=== PATIENT | female | born 1940 | race Caucasian/White ===

== ENCOUNTER → 2018-01-20 | Outpatient (CLI) | payer MEDICARE ==
[~2018-01-20] MED LIST: AMLO10TA2 PO; ASPI325T80 PO; CALC1CAP8 PO; GABA600T2 PO; HYDR12.58 PO; HYDR25TA11 PO; LOSA100T2 PO; MULT-224 PO; NEBI10TA3 PO; OXYC1TAB7 PO; PRAV40TA2 PO; PRED1TAB PO; ZOLP10TA5 PO
== END | disposition home or self-care (01) ==
LOC: CFH 08:51
DX: M85.88 Other specified disorders of bone density and structure, other site (principal); M81.0 Age-related osteoporosis without current pathological fracture; R60.0 Localized edema
CPT/HCPCS: 77080

== ENCOUNTER 2018-04-12 09:40 | Inpatient (IN) | payer MEDICARE ==
[~2018-04-12] VITALS: Ht 162.6 cm; Wt 79.3 kg
[2018-04-12] MEDS ORDERED: SODIUM CHLORIDE 0.9% 1,000ML IVBOLUS ONE (10:30)
[2018-04-12] MEDS ORDERED: SODIUM CHLORIDE FLUSH 10ML SYR IVF ONE (10:30)
[2018-04-12 10:59] LABS: BASOPHILS # (AUTO) 0.01 x10^3/uL (0-0.1); BASOPHILS % (AUTO) 0 % (0-1); EOSINOPHILS # (AUTO) 0.54 x10^3/uL (0-0.4); EOSINOPHILS % (AUTO) 4 % (1-7); LYMPHOCYTES # (AUTO) 0.54 x10^3/uL (1-3.4); LYMPHOCYTES % (AUTO) 4 % (22-44); MD NO; MEAN CORPUSCULAR HEMOGLOBIN 30.6 pg (27.0-34.8); MEAN CORPUSCULAR HGB CONC 33.6 g/dL (32.4-35.8); MEAN CORPUSCULAR VOLUME 91.2 fL (80-100); MEAN PLATELET VOLUME 8.7 fL (7.4-10.4); MONOCYTES # (AUTO) 0.81 x10^3/uL (0.2-0.8); MONOCYTES % (AUTO) 5 % (2-9); NEUTROPHILS % (AUTO) 88 % (42-75); PLATELET COUNT 223 x10^3/uL (130-400); RED CELL DISTRIBUTION WIDTH 13.6 % (9.6-15.2)
[2018-04-12 11:10] LABS: ALBUMIN 2.9 g/dL (3.4-5.0); ANION GAP 13 mmol/L (5-15); CALCIUM 9.1 mg/dL (8.5-10.1); CHLORIDE 104 mmol/L (98-107); CREATININE 3.24 mg/dL (0.55-1.02)
[2018-04-12] MEDS ORDERED: CEFTRIAXONE PMX 1GM/50ML 50 ML ONE (11:14)
[2018-04-12] MEDS ORDERED: CEFTRIAXONE 1,000 MG in SODIUM CHLORIDE 0.9% 50 ML IVPB ONE (11:30)
[2018-04-12 12:04] LABS: MICROSCOPIC INDICATED
[2018-04-12 12:05] LABS: CULTURE INDICATED? YES
[2018-04-12] MEDS ORDERED: SODIUM CHLORIDE 0.9% 1,000 ML IV ONE (13:10)
[2018-04-12] MEDS ORDERED: SODIUM CHLORIDE FLUSH 10ML SYR IVF PRN (13:30)
[2018-04-12] MEDS ORDERED: ENOXAPARIN 40 MG/0.4 ML SQ SCH (14:30)
[2018-04-12] MEDS ORDERED: OXYcodone/APAP 5/325MG TABLET PO PRN (14:30)
[2018-04-12 15:02] VITALS: BP 108/72
[2018-04-12] MEDS: SODIUM CHLORIDE 0.9% 1,000 ML IV SCH ×2 (18:00→23:54)
[2018-04-12 18:33] VITALS: BP 134/68
[2018-04-12] MEDS: MAG HOMEMEDPO SCH (20:30)
[2018-04-12] MEDS: CALCIUM CARBONATE HOMEMEDPO SCH (20:30)
[2018-04-12] MEDS: ASPIRIN HOMEMEDPO SCH (20:30)
[2018-04-12] MEDS: PRAVASTATIN 40 MG TABLET PO SCH (20:31)
[2018-04-12] MEDS: ZOLPIDEM 10MG TABLET PO SCH (21:58)
[2018-04-12] MEDS: CEFTRIAXONE 2 GM in SODIUM CHLORIDE 0.9% 50 ML IV SCH (23:53)
[2018-04-13 00:52] VITALS: BP 98/62
[2018-04-13 04:39] LABS: MD YES; MEAN CORPUSCULAR HEMOGLOBIN 30.8 pg (27.0-34.8); MEAN CORPUSCULAR HGB CONC 33.6 g/dL (32.4-35.8); MEAN CORPUSCULAR VOLUME 91.6 fL (80-100); PLATELET COUNT 197 x10^3/uL (130-400); RED BLOOD COUNT 4.09 x10^6/uL (3.82-5.3); RED CELL DISTRIBUTION WIDTH 13.9 % (9.6-15.2)
[2018-04-13 04:53] LABS: CHLORIDE 110 mmol/L (98-107)
[2018-04-13 04:58] LABS: ANION GAP 11 mmol/L (5-15); CALCIUM 7.8 mg/dL (8.5-10.1); CREATININE 2.25 mg/dL (0.55-1.02)
[2018-04-13 05:02] LABS: EOS#(MANUAL) 0.27 x10^3/uL (0.0-0.4); EOS% (MANUAL) 3 % (1-7); LYMPH#(MANUAL) 1.17 x10^3/uL (1-3.4); LYMPHS% (MANUAL) 13 % (22-44); MONOS#(MANUAL) 0.99 x10^3/uL (0.3-2.7); MONOS% (MANUAL) 11 % (2-9); SEG#(MANUAL) 6.57 x10^3/uL (1.8-6.8); SEGS% (MANUAL) 73 % (42-75)
[2018-04-13 05:03] LABS: <PLATELET ESTIMATE> ADEQUATE; <PLT MORPHOLOGY> NORMAL PLT MORPH; <RBC MORPHOLOGY> NORMAL
[2018-04-13 07:00] VITALS: BP 106/66
[2018-04-13 07:46] LABS: CREATININE,URINE RANDOM 55.2 mg/dL
[2018-04-13] MEDS: ASPIRIN HOMEMEDPO SCH ×2 (08:12→21:00)
[2018-04-13] MEDS: MAG HOMEMEDPO SCH ×2 (08:12→21:00)
[2018-04-13] MEDS: CALCIUM CARBONATE HOMEMEDPO SCH ×2 (08:12→21:00)
[2018-04-13] MEDS: SODIUM CHLORIDE 0.9% 1,000 ML IV SCH ×3 (08:13→23:40)
[2018-04-13] MEDS: GABAPENTIN 300 MG CAPSULE PO SCH (08:13)
[2018-04-13] MEDS: CALCIUM/VITAMIN D3 250-125 TABLET PO SCH (08:14)
[2018-04-13] MEDS ORDERED: AMLODIPINE 5 MG TABLET PO SCH (09:00)
[2018-04-13 16:21] LABS: ALBUMIN 2.3 g/dL (3.4-5.0); ANION GAP 10 mmol/L (5-15); CALCIUM 8.2 mg/dL (8.5-10.1); CHLORIDE 112 mmol/L (98-107); CREATININE 1.97 mg/dL (0.55-1.02)
[2018-04-13 16:38] VITALS: BP 107/65
[2018-04-13 16:50] VITALS: BP 95/58
[2018-04-13] MEDS: POTASSIUM CHLORIDE 20 MEQ TAB.ER.PRT PO SCH (17:40)
[2018-04-13 18:35] VITALS: BP 118/71
[2018-04-13] MEDS: ENOXAPARIN 30 MG/0.3 ML SQ SCH (20:00)
[2018-04-13] MEDS: PRAVASTATIN 40 MG TABLET PO SCH (21:30)
[2018-04-13] MEDS: ZOLPIDEM 10MG TABLET PO SCH (21:30)
[2018-04-13] MEDS: AMLODIPINE 5 MG TABLET PO SCH (21:30)
[2018-04-13] MEDS: CEFTRIAXONE 2 GM in SODIUM CHLORIDE 0.9% 50 ML IV SCH (23:40)
[2018-04-14 01:55] VITALS: BP 102/62
[2018-04-14 04:54] LABS: BASOPHILS # (AUTO) 0.01 x10^3/uL (0-0.1); BASOPHILS % (AUTO) 0 % (0-1); EOSINOPHILS # (AUTO) 0.62 x10^3/uL (0-0.4); EOSINOPHILS % (AUTO) 8 % (1-7); LYMPHOCYTES % (AUTO) 17 % (22-44); MD NO; MEAN CORPUSCULAR HEMOGLOBIN 30.2 pg (27.0-34.8); MEAN CORPUSCULAR HGB CONC 32.8 g/dL (32.4-35.8); MEAN CORPUSCULAR VOLUME 92.2 fL (80-100); MEAN PLATELET VOLUME 8.5 fL (7.4-10.4); MONOCYTES # (AUTO) 0.67 x10^3/uL (0.2-0.8); MONOCYTES % (AUTO) 8 % (2-9); NEUTROPHILS # (AUTO) 5.38 x10^3/uL (1.8-6.8); NEUTROPHILS % (AUTO) 67 % (42-75); PLATELET COUNT 216 x10^3/uL (130-400); RED BLOOD COUNT 4.03 x10^6/uL (3.82-5.3); RED CELL DISTRIBUTION WIDTH 14.1 % (9.6-15.2)
[2018-04-14 05:03] LABS: ANION GAP 10 mmol/L (5-15); CHLORIDE 118 mmol/L (98-107); CREATININE 1.73 mg/dL (0.55-1.02)
[2018-04-14 06:30] VITALS: BP 158/97
[2018-04-14] MEDS: POTASSIUM CHLORIDE 20 MEQ TAB.ER.PRT PO SCH (07:41)
[2018-04-14] MEDS: SODIUM CHLORIDE 0.9% 1,000 ML IV SCH ×2 (07:41→16:19)
[2018-04-14] MEDS: CALCIUM CARBONATE HOMEMEDPO SCH ×2 (07:54→21:00)
[2018-04-14] MEDS: ASPIRIN HOMEMEDPO SCH ×2 (07:54→21:00)
[2018-04-14] MEDS: GABAPENTIN 300 MG CAPSULE PO SCH (07:54)
[2018-04-14] MEDS: MAG HOMEMEDPO SCH ×2 (07:54→21:00)
[2018-04-14] MEDS: CALCIUM/VITAMIN D3 250-125 TABLET PO SCH (07:55)
[2018-04-14 12:30] VITALS: BP 143/72
[2018-04-14 19:07] VITALS: BP 123/72
[2018-04-14] MEDS: ENOXAPARIN 30 MG/0.3 ML SQ SCH (20:00)
[2018-04-14] MEDS: AMLODIPINE 5 MG TABLET PO SCH (21:28)
[2018-04-14] MEDS: ZOLPIDEM 10MG TABLET PO SCH (21:29)
[2018-04-14] MEDS: PRAVASTATIN 40 MG TABLET PO SCH (21:29)
[2018-04-14] MEDS: CEFTRIAXONE 2 GM in SODIUM CHLORIDE 0.9% 50 ML IV SCH (23:40)
[2018-04-15 00:27] VITALS: BP 116/72
[2018-04-15] MEDS: SODIUM CHLORIDE 0.9% 1,000 ML IV SCH ×2 (01:04→08:14)
[2018-04-15 05:07] LABS: ANION GAP 10 mmol/L (5-15); CALCIUM 8.2 mg/dL (8.5-10.1); CHLORIDE 118 mmol/L (98-107); CREATININE 1.29 mg/dL (0.55-1.02)
[2018-04-15 06:50] VITALS: BP 121/70
[2018-04-15] MEDS: GABAPENTIN 300 MG CAPSULE PO SCH (07:30)
[2018-04-15] MEDS: CALCIUM CARBONATE HOMEMEDPO SCH (07:30)
[2018-04-15] MEDS: MAG HOMEMEDPO SCH (07:30)
[2018-04-15] MEDS: ASPIRIN HOMEMEDPO SCH (07:30)
[2018-04-15] MEDS: CALCIUM/VITAMIN D3 250-125 TABLET PO SCH (08:13)
[2018-04-15] MEDS: AMLODIPINE 5 MG TABLET PO SCH (08:13)
[2018-04-15] MEDS ORDERED: MAGNESIUM SULFATE PMX 2GM/50ML 50 ML IV ONE (10:00)
[2018-04-15] MEDS ORDERED: MAGNESIUM CHLORIDE 64 MG TABLET.DR PO SCH (10:00)
[2018-04-15] MEDS ORDERED: POTASSIUM CHLORIDE 20 MEQ TAB.ER.PRT PO ONE (10:00)
[2018-04-15 12:15] VITALS: BP 127/66
[2018-04-15] MEDS ORDERED: CEFD300C37 PO ×2 (12:59→13:06)
[2018-04-15] MEDS ORDERED: MAGN64TA7 PO (13:01)
[2018-04-15] MEDS ORDERED: AMLO5TAB2 PO (13:08)
[2018-04-16] MEDS ORDERED: ENOXAPARIN 40 MG/0.4 ML SQ SCH (06:00)
== END 2018-04-15 14:52 | disposition home or self-care (01) | DRG 871 ==
LOC: ED 11:05 → EDIP 13:10 → 3NE 14:17
PROVIDERS: ADMIT Internal Medicine; ATTEND Internal Medicine
DX: A41.9 Sepsis, unspecified organism (principal); N17.0 Acute kidney failure with tubular necrosis; N39.0 Urinary tract infection, site not specified; E87.2 Acidosis; E44.1 Mild protein-calorie malnutrition; J98.11 Atelectasis; E78.00 Pure hypercholesterolemia, unspecified; Z96.659 Presence of unspecified artificial knee joint; E78.5 Hyperlipidemia, unspecified; E86.0 Dehydration; E87.6 Hypokalemia; I10 Essential (primary) hypertension; Z79.891 Long term (current) use of opiate analgesic; Z87.891 Personal history of nicotine dependence; Z90.710 Acquired absence of both cervix and uterus; Z90.49 Acquired absence of other specified parts of digestive tract; Z90.89 Acquired absence of other organs; Z82.49 Family history of ischemic heart disease and other diseases of the circulatory system
CPT/HCPCS: 36415; 71045; 76770; 80048; 80069; 81001; 82040; 82436; 82570; 83605; 83735; 84100; 84133; 84145; 84300; 85025; 87040; 87086; 93005; 93970; 96365; 99285; J0696; J1650; J3475; J7030; Q0177

== ENCOUNTER → 2020-05-16 | Outpatient (CLI) | payer MEDICARE ==
[~2020-05-16] MED LIST changes: +AMLO-150 PO; -AMLO10TA2 PO; +AMLO10TA8 PO; +CEFD300C37 PO; -GABA600T2 PO; +GABA600T7 PO; +HYDR-826 PO; -HYDR12.58 PO; -HYDR25TA11 PO; +HYDROCHLOROTH12.5 MG PO; +MAGN64TA7 PO; -MULT-224 PO; +MULT-642 PO; -PRED1TAB PO; +PRED1TAB19 PO
[2020-05-16 11:52] LABS: BASOPHILS # (AUTO) 0.06 x10^3/uL (0-0.1); BASOPHILS % (AUTO) 1 % (0-1); EOSINOPHILS # (AUTO) 0.45 x10^3/uL (0-0.4); EOSINOPHILS % (AUTO) 4 % (1-7); LYMPHOCYTES # (AUTO) 2.21 x10^3/uL (1-3.4); LYMPHOCYTES % (AUTO) 17 % (22-44); MD NO; MEAN CORPUSCULAR HEMOGLOBIN 30.1 pg (27.0-34.8); MEAN CORPUSCULAR HGB CONC 33.2 g/dL (32.4-35.8); MEAN CORPUSCULAR VOLUME 90.8 fL (80-100); MEAN PLATELET VOLUME 8.4 fL (7.4-10.4); MONOCYTES # (AUTO) 1.22 x10^3/uL (0.2-0.8); MONOCYTES % (AUTO) 10 % (2-9); NEUTROPHILS # (AUTO) 8.92 x10^3/uL (1.8-6.8); NEUTROPHILS % (AUTO) 69 % (42-75); PLATELET COUNT 349 x10^3/uL (130-400); RED BLOOD COUNT 4.75 x10^6/uL (3.82-5.3); RED CELL DISTRIBUTION WIDTH 13.8 % (9.6-15.2)
[2020-05-16 11:53] LABS: ALBUMIN 3.5 g/dL (3.4-5.0); ANION GAP 7 mmol/L (5-15); CALCIUM 9.7 mg/dL (8.5-10.1); CHLORIDE 110 mmol/L (98-107)
[2020-05-16 11:56] LABS: ALANINE AMINOTRANSFERASE 21 U/L (12-78); ALKALINE PHOSPHATASE 93 U/L (45-117); BILIRUBIN,TOTAL 0.9 mg/dL (0.2-1.0); CREATININE 1.52 mg/dL (0.55-1.02); TOTAL PROTEIN 6.8 g/dL (6.4-8.2)
== END | disposition home or self-care (01) ==
LOC: STAR 10:25
PROVIDERS: ATTEND Orthopaedic Surgery
DX: Z01.818 Encounter for other preprocedural examination (principal); Z11.59 Encounter for screening for other viral diseases; M16.11 Unilateral primary osteoarthritis, right hip; M25.551 Pain in right hip; I21.9 Acute myocardial infarction, unspecified; R00.1 Bradycardia, unspecified
CPT/HCPCS: 36415; 80053; 85025; 87081; 87147; 87635; 93005

== ENCOUNTER 2020-05-20 10:16 | Inpatient (IN) | payer MEDICARE ==
[~2020-05-20] VITALS: Ht 162.6 cm; Wt 62.5 kg
[2020-05-20] MEDS ORDERED: LACTATED RINGERS 1,000 ML IV SCH (10:25)
[2020-05-20] MEDS ORDERED: CHLORHEXIDINE 15 ML UDC MM STA (10:26)
[2020-05-20] MEDS ORDERED: ACETAMINOPHEN 500 MG TABLET PO ONE (10:30)
[2020-05-20] MEDS ORDERED: TRANEXAMIC ACID 100 MG/ML, 10ML ONE ×2 (11:49)
[2020-05-20] MEDS ORDERED: VANCOMYCIN 1,000 MG ONE (11:49)
[2020-05-20] MEDS ORDERED: HYDROCORTISONE 100 MG INJ. ONE (12:27)
[2020-05-20] MEDS ORDERED: SUGAMMADEX 200 MG/2 ML IVPush ONE (12:43)
[2020-05-20] MEDS ORDERED: ROCURONIUM 10 MG/ML,10ML ONE (12:43)
[2020-05-20] MEDS ORDERED: SUCCINYLCHOLINE 20 MG/ML, 10ML ONE (12:43)
[2020-05-20] MEDS ORDERED: EPHEDRINE 50 MG/ML, 1ML ONE (12:43)
[2020-05-20] MEDS ORDERED: ONDANSETRON 2MG/ML, 2ML ONE (12:43)
[2020-05-20] MEDS ORDERED: PROPOFOL 10 MG/ML, 20ML ONE (12:43)
[2020-05-20] MEDS ORDERED: KETOROLAC 60 MG/2 ML ONE (14:39)
[2020-05-20] MEDS ORDERED: ONDANSETRON 2MG/ML, 2ML IVPush PRN ×2 (15:00)
[2020-05-20] MEDS ORDERED: TRANEXAMIC ACID 1,000 MG in SODIUM CHLORIDE 0.9% 100 ML IVPB ONE (15:00)
[2020-05-20] MEDS ORDERED: MIDAZOLAM 1 MG/ML, 2ML IV PRN (15:00)
[2020-05-20] MEDS ORDERED: EPHEDRINE 50 MG/ML, 1ML IVPush PRN (15:00)
[2020-05-20] MEDS ORDERED: HYDROmorphone 1 MG/ML, 1ML INJ IVPush PRN ×2 (15:00)
[2020-05-20] MEDS ORDERED: DEXAMETHASONE 4 MG/ML, 1ML IVPush SCH (15:00)
[2020-05-20] MEDS ORDERED: ALBUTEROL SULFATE 2.5 MG/3 ML NPPB PRN (15:00)
[2020-05-20] MEDS ORDERED: DIPHENHYDRAMINE 50 MG/ML, 1ML IVPush PRN ×3 (15:00)
[2020-05-20] MEDS ORDERED: MEPERIDINE/PF 25MG/0.5ML IVPush PRN (15:00)
[2020-05-20] MEDS ORDERED: ONDANSETRON 2MG/ML, 2ML IV PRN (15:00)
[2020-05-20] MEDS ORDERED: PROMETHAZINE 12.5 MG SUPP PR PRN ×2 (15:00)
[2020-05-20] MEDS ORDERED: OXYcodone IR 5MG TABLET PO PRN (15:00)
[2020-05-20] MEDS ORDERED: BISACODYL 10 MG SUPP PR PRN (15:00)
[2020-05-20] MEDS ORDERED: POLYETHYLENE GLYCOL 17 GM PACKET PO PRN (15:00)
[2020-05-20] MEDS ORDERED: SENNA/DOCUSATE TABLET PO PRN (15:00)
[2020-05-20] MEDS ORDERED: ALUMINUM/MAG/SIMETHICONE 30 ML UDC PO PRN (15:00)
[2020-05-20] MEDS ORDERED: OXYcodone 5 MG/5 ML ORAL.SOL UDC PO PRN (15:00)
[2020-05-20] MEDS ORDERED: PSYLLIUM PACKET PO PRN (15:00)
[2020-05-20] MEDS ORDERED: hydrALAzine 20 MG/ML, 1ML IV PRN (15:00)
[2020-05-20] MEDS ORDERED: PROMETHAZINE 25 MG/ML, 1ML IVPush PRN (15:00)
[2020-05-20] MEDS ORDERED: VANCOMYCIN PER PHARMACY MC PRN (15:00)
[2020-05-20] MEDS ORDERED: PROMETHAZINE 25 MG/ML, 1ML IM PRN (15:00)
[2020-05-20] MEDS ORDERED: LABETALOL 5MG/ML, 20ML IV PRN (15:00)
[2020-05-20] MEDS ORDERED: MAGNESIUM HYDROXIDE 8%, 30ML UDC PO PRN (15:00)
[2020-05-20] MEDS ORDERED: DIPHENHYDRAMINE 25 MG CAPSULE PO PRN (15:00)
[2020-05-20] MEDS ORDERED: DIAZEPAM 5 MG/ML, 2ML IVPush PRN (15:00)
[2020-05-20] MEDS ORDERED: FENTANYL PF 100 MCG/2ML ONE (15:02)
[2020-05-20] MEDS ORDERED: OXYcodone 5 MG/5 ML ORAL.SOL UDC ONE (15:03)
[2020-05-20] MEDS: FENTANYL PF 100 MCG/2ML IV PRN ×2 (15:10→15:40)
[2020-05-20 16:40] VITALS: BP 139/66
[2020-05-20] MEDS: SODIUM CHLORIDE 0.9% 1,000 ML IV SCH (18:15)
[2020-05-20] MEDS: ACETAMINOPHEN 500 MG TABLET PO SCH ×2 (18:15→23:35)
[2020-05-20] MEDS: DOCUSATE 100 MG CAPSULE PO SCH (19:47)
[2020-05-20] MEDS: ASPIRIN 81 MG TABLET EC PO SCH (19:48)
[2020-05-20] MEDS: OXYcodone IR 5MG TABLET PO PRN ×2 (19:50→23:49)
[2020-05-20] MEDS: NEBIVOLOL HCL 5 MG TABLET PO SCH (19:51)
[2020-05-20] MEDS ORDERED: TAMSULOSIN 0.4 MG CAP.ER.24H PO ONE (20:00)
[2020-05-20 20:38] VITALS: BP 127/66
[2020-05-20 23:30] VITALS: BP 98/42
[2020-05-20] MEDS: CEFAZOLIN PMX 1GM/50ML 50 ML IVPB SCH (23:35)
[2020-05-20] MEDS: DIAZEPAM 5 MG TABLET PO PRN (23:47)
[2020-05-21] MEDS: SODIUM CHLORIDE 0.9% 1,000 ML IV SCH ×3 (00:32→20:32)
[2020-05-21] MEDS: OXYcodone IR 5MG TABLET PO PRN ×5 (04:16→22:21)
[2020-05-21 04:51] LABS: ALBUMIN 2.8 g/dL (3.4-5.0); ANION GAP 8 mmol/L (5-15); CALCIUM 8.9 mg/dL (8.5-10.1); CHLORIDE 110 mmol/L (98-107)
[2020-05-21] MEDS ORDERED: DEXAMETHASONE 4 MG/ML, 1ML IVPush SCH (06:00)
[2020-05-21] MEDS: ACETAMINOPHEN 500 MG TABLET PO SCH ×3 (06:16→18:19)
[2020-05-21 07:10] VITALS: BP 108/61
[2020-05-21] MEDS: CEFAZOLIN PMX 1GM/50ML 50 ML IVPB SCH (07:30)
[2020-05-21] MEDS ORDERED: ZOLPIDEM 10MG TABLET PO PRN (07:30)
[2020-05-21] MEDS: ASPIRIN 81 MG TABLET EC PO SCH ×2 (08:44→20:41)
[2020-05-21] MEDS: DOCUSATE 100 MG CAPSULE PO SCH ×2 (08:45→20:41)
[2020-05-21] MEDS: MULTIVITAMINS/MINERALS TABLET PO SCH (08:46)
[2020-05-21] MEDS: HYDROCHLOROTHIAZIDE 12.5 MG CAPSULE PO SCH (08:48)
[2020-05-21 14:10] VITALS: BP 123/54
[2020-05-21 20:00] VITALS: BP 135/57
[2020-05-22 01:35] VITALS: BP 135/67
[2020-05-22] MEDS: OXYcodone IR 5MG TABLET PO PRN ×2 (03:28→08:26)
[2020-05-22] MEDS: SODIUM CHLORIDE 0.9% 1,000 ML IV SCH (05:32)
[2020-05-22] MEDS: NEBIVOLOL HCL 5 MG TABLET PO SCH (05:48)
[2020-05-22] MEDS: ACETAMINOPHEN 500 MG TABLET PO SCH ×2 (05:48)
[2020-05-22] MEDS: DIAZEPAM 5 MG TABLET PO PRN (05:59)
[2020-05-22 08:00] VITALS: BP 130/74
[2020-05-22] MEDS: HYDROCHLOROTHIAZIDE 12.5 MG CAPSULE PO SCH (09:00)
[2020-05-22] MEDS ORDERED: OXYcodone IR 5MG TABLET PO PRN (09:00)
[2020-05-22] MEDS: ASPIRIN 81 MG TABLET EC PO SCH (09:04)
[2020-05-22] MEDS: MULTIVITAMINS/MINERALS TABLET PO SCH (09:04)
[2020-05-22] MEDS: DOCUSATE 100 MG CAPSULE PO SCH (09:04)
[2020-05-22 10:10] VITALS: BP 146/64
[2020-05-22] MEDS ORDERED: OXYC5TAB3 PO (10:14)
== END 2020-05-22 11:06 | disposition home or self-care (01) | DRG 470 ==
LOC: OUT 10:16 → ORIP 14:32 → OBSVTOIN 14:32 → 4NE 16:53 → DCLOUNGE 05-22 10:55
PROVIDERS: ADMIT Orthopaedic Surgery; ATTEND Orthopaedic Surgery
PROC: 0SR906A Replacement of Right Hip Joint with Oxidized Zirconium on Polyethylene Synthetic Substitute, Uncemented, Open Approach (ICD-10-PCS; principal; 2020-05-20 13:30)
DX: M16.11 Unilateral primary osteoarthritis, right hip (principal); M25.051 Hemarthrosis, right hip; Z96.641 Presence of right artificial hip joint; Z91.048 Other nonmedicinal substance allergy status
CPT/HCPCS: 36415; 72170; 80048; 82040; 85014; 85018; 86850; 86900; C1713; G0378; J0690; J1885; J2250; J2405; J2704; J3010; J3370; J7512; C1776; J0330; J1720; J7030; J7120

== ENCOUNTER 2020-08-21 07:24 | Emergency (ER) | payer MEDICARE ==
[~2020-08-21] VITALS: Ht 162.6 cm; Wt 56.8 kg
[~2020-08-21 07:24] MED LIST changes: +AMLO-211 PO; -AMLO10TA8 PO; +OXYC5TAB3 PO
--- NOTE | 2020-08-21 07:55 | NUR ---
PT TO ROOM 35 W/ C/O COUGH, FEVER X 5 DAYS, DIARRHEA X 2 WEEKS, FATIGUE. PT STATES MOST SX STARTED 2 WEEKS AGO. PT WENT TO 7 DAYS AGO AND HAD COVID TEST DONE AT [facility]. PT STATES SHE HAS NOT RECEIVED HER RESULTS YET. MONITORS APPLIED. O2 SATS NOTED TO BE 91% RA. PT RESTING ON GURNEY. NADN. POSITIONED FOR COMFORT. KRAIG MCMAHAN AT BEDSIDE. AWARE OF PT TEMP.
[2020-08-21] MEDS ORDERED: ACETAMINOPHEN 500 MG TABLET PO ONE (08:00)
[2020-08-21] MEDS ORDERED: SODIUM CHLORIDE 0.9% 1,000ML IVBOLUS ONE (08:00)
[2020-08-21] MEDS ORDERED: ACETAMINOPHEN 500 MG TABLET ONE (08:02)
[2020-08-21 08:32] LABS: BASOPHILS % (AUTO) 1 % (0-1); EOSINOPHILS % (AUTO) 0 % (1-7); LYMPHOCYTES % (AUTO) 15 % (22-44); MEAN CORPUSCULAR HEMOGLOBIN 29.1 pg (27.0-34.8); MEAN CORPUSCULAR HGB CONC 32.8 g/dL (32.4-35.8); MEAN PLATELET VOLUME 8.3 fL (7.4-10.4); MONOCYTES % (AUTO) 15 % (2-9); NEUTROPHILS % (AUTO) 70 % (42-75); PLATELET COUNT 347 x10^3/uL (130-400); RED BLOOD COUNT 4.81 x10^6/uL (3.82-5.3); RED CELL DISTRIBUTION WIDTH 13.8 % (9.6-15.2)
[2020-08-21 08:40] LABS: ALANINE AMINOTRANSFERASE 18 U/L (12-78); ALBUMIN 3.1 g/dL (3.4-5.0); ANION GAP 10 mmol/L (5-15); CALCIUM 8.7 mg/dL (8.5-10.1); CHLORIDE 108 mmol/L (98-107); CREATININE 2.13 mg/dL (0.55-1.02)
[2020-08-21 08:47] LABS: ALKALINE PHOSPHATASE 92 U/L (45-117); BILIRUBIN,TOTAL 1.3 mg/dL (0.2-1.0); TOTAL PROTEIN 6.9 g/dL (6.4-8.2)
[2020-08-21 08:49] LABS: MD SCAN
--- NOTE | 2020-08-21 09:16 | NUR ---
PT RESTING ON GURNEY. NADN. CHACON.
--- NOTE | 2020-08-21 09:47 | NUR ---
HOME O2 REQUEST FAXED TO [facility].
--- NOTE | 2020-08-21 09:51 | NUR ---
PER THUAN AT [facility], "WE ARE PRETTY LOW. I'M NOT REALLY RELEASING ANY RIGHT NOW. YOU SHOULD TRY A DIFFERENT COMPANY."
--- NOTE | 2020-08-21 09:59 | NUR ---
PT MADE AWARE OF DME ISSUE. [facility] NOW SELECTED BY PT. INFORMATION FAXED.
--- NOTE | 2020-08-21 11:01 | NUR ---
PT RESTING ON GURNEY. NADN. CHACON.
--- NOTE | 2020-08-21 11:09 | NUR ---
SPOKE W/ ERP DR. ORANTES IN REGARDS TO WBC 16.2, LA 2.2, AND PT'S NEED FOR 2L NC. PER ERP PT HAS BEEN SICK X 2 WEEKS, HAS NO DYSPNEA/SOB. PER ERP DR. ORANTES STATES PT IS CLINICALLY STABLE AND CAN GO HOME.
--- NOTE | 2020-08-21 11:23 | NUR ---
SPOKE WITH [facility] REGARDING HOME O2. SENT RX VIA FAX. THEY ARE GOING TO CALL PT TO SET UP DELIVERY
--- NOTE | 2020-08-21 12:28 | NUR ---
PT RESTING ON GURNEY. NADN. CHACON.
--- NOTE | 2020-08-21 13:20 | NUR ---
PT RESTING ON GURNEY. NADN. CHACON.
--- NOTE | 2020-08-21 14:32 | NUR ---
PT RESTING ON [place]. ANALI. VSS. PT STATES SHE HAS NOT HEARD BACK FROM THE [employer]XYGEN COMPANY, KAM RODRIGUEZ RN NOTIFIED.
--- NOTE | 2020-08-21 15:39 | NUR ---
BREAK RN: PATIENT RESTING ON GURNEY, RESPIRATIONS EVEN AND UNLABORED. ANALI CHACON.
--- NOTE | 2020-08-21 16:59 | NUR ---
O2 COMPANY AT BEDSIDE EDUCATING PT ON O2 USE.
[2020-08-21 17:24] VITALS: BP 124/74
== END 2020-08-21 17:27 | disposition home or self-care (01) ==
LOC: ED 07:51
DX: R06.03 Acute respiratory distress (principal); Z20.828 Contact with and (suspected) exposure to other viral communicable diseases; R00.1 Bradycardia, unspecified; I10 Essential (primary) hypertension
CPT/HCPCS: 71045; 80053; 82728; 83605; 83615; 84145; 85025; 86140; 87040; 87635; 93005; 99285; J7030